=== PATIENT | female | born 1965 | race Caucasian/White ===

== ENCOUNTER 2017-03-20 05:08 | Day surgery (SDC) | payer OTHER ==
[2017-03-15 13:19] VITALS: BMI 26.6
--- NOTE | 2017-03-20 07:17 | HP ---
History & Physical Update - History History: No Change - Physical Physical: No Change - Assessment Assessment: No Change - Plan Plan: No Change (Initial h&p is complete and inher paper chart)
[2017-03-20] MEDS ORDERED: ePHEDrine SULFATE 50 MG/1 ML AMPULE ONE (09:27)
[2017-03-20] MEDS ORDERED: ROCURONIUM BROMIDE 50 MG/5 ML VIAL ONE (09:28)
[2017-03-20] MEDS ORDERED: SODIUM CHLORIDE 0.9% P/F 10 ML VIAL IJ ONE (09:28)
[2017-03-20] MEDS ORDERED: PROMETHAZINE HCL 25 MG/1 ML VIAL IVPUSH PRN (10:00)
[2017-03-20] MEDS ORDERED: ONDANSETRON 4 MG/2 ML VIAL IVPUSH PRN (10:00)
[2017-03-20] MEDS ORDERED: LACTATED RINGERS SOLUTION 1,000 ML IV SCH (10:00)
[2017-03-20] MEDS ORDERED: MIDAZOLAM HCL 2 MG/2 ML SINGLE DOSE VIAL ONE (10:04)
[2017-03-20] MEDS ORDERED: DEXAMETHASONE SOD PHOSPHATE 4 MG/1 ML VIAL ONE (10:15)
[2017-03-20] MEDS ORDERED: ceFAZolin SODIUM 1 GM VIAL IVPB ONE (10:45)
[2017-03-20] MEDS ORDERED: BUPIVACAINE HCL/PF 0.5% (5MG/ML) 10 ML VIAL IJ ONE ×2 (11:21→11:42)
[2017-03-20] MEDS ORDERED: oxyCODONE HCL 5 MG TABLET PO PRN (11:25)
[2017-03-20] MEDS ORDERED: GLYCOPYRROLATE 0.2 MG/1 ML VIAL ONE (11:36)
[2017-03-20] MEDS ORDERED: NEOSTIGMINE METHYLSULFATE 0.5 MG/ML - 10 ML MDV ONE (11:36)
[2017-03-20] MEDS ORDERED: HYDROmorphone HCL/PF 1 MG/ML VIAL (FOR PYXIS CHARGING ONLY) ONE (11:43)
--- NOTE | 2017-03-20 12:02 | OP ---
Operative Note - Note: Operative Date: 03/20/17 Pre-Operative Diagnosis: Ovarian cyst, pelvoc pain Operation: Robotic lysis of adhesions, right oopharectomy. Left ovarian wall biopsy Post-Operative Diagnosis: Same as Pre-op Surgeon: Iona Trevizo Proposal Manager: Aryan Ramos Anesthesiologist/WEB SITE DESIGNER: Sol Chakraborty Anesthesia: General Specimens Removed: Right ovary (complete). Left ovarian wall biopsy Estimated Blood Loss (mls): 20 Drains, Volume Out (mls): 300 (Clear) Fluid Volume Replaced (mls): 1,200 Operative Report Dictated: Yes
--- NOTE | 2017-03-20 12:04 | SURG ---
Surgery Web Manager Note Web Manager: Aryan Ramos PA-C Date of Service: 03/20/17 Diagnosis: Right ovarian cyst, pelvic pain Procedure: Robotic lysis of adhesions, right ovarian oopharectomy, left ovarian wall biopsy I was present for the entirety of the operative procedure. For further detail, please refer to operative report. Visit type - Case Type Case Type: Scheduled Admission - New patient This patient is new to me today: Yes Date on this admission: 03/20/17
[2017-03-20] MEDS ORDERED: ACETAMINOPHEN 1000 MG/100 ML VIAL (NON FORMULARY) IVPB ONE (12:05)
[2017-03-20] MEDS ORDERED: ONDANSETRON 4 MG/2 ML VIAL ONE (13:33)
[2017-03-20 13:41] VITALS: TEMP 97.5
[2017-03-20] MEDS ORDERED: PROMETHAZINE HCL 25 MG/1 ML VIAL ONE (15:24)
[2017-03-20] MEDS ORDERED: PROMETHAZINE HCL 25 MG/1 ML VIAL IVPUSH ONE (15:32)
[2017-03-20 17:34] VITALS: BP 100/60; PULSE 68
--- NOTE | 2017-03-21 14:14 | PATH ---
Surgical Pathology Report Patient Name: HUMPHREY VAZQUEZ [facility]. Rec. #: [id number] /Age/Gender: 1965 (Age: 51) / F Account: [id number] Location: [facility] SURGICAL Taken: 03/20/2017 Received: 03/20/2017 Reported: 03/21/2017 Physicians: Iona Trevizo M.D. Specimen(s) Received A: PORTION OF LEFT OVARY B: RIGHT OVARY Clinical History Right ovarian cyst Final Diagnosis A. PORTION OF LEFT OVARY: PORTION OF BENIGN OVARIAN TISSUE WITH FIBRINOHEMORRHAGIC ADHESIONS. B. RIGHT OVARY, OOPHORECTOMY: BENIGN OVARY WITH CYSTIC FOLLICLES AND CYSTIC CORPUS LUTEUM. Electronically Signed Marcos Caballero M.D. Gross Description A. Received in formalin labeled "portion of left ovary" the two fragments of shepard-pink soft tissue 0.5 and 0.6 cm in largest dimension. Submitted entirely in one cassette. B. Received in formalin, labeled "right ovary" is a 3 x 2.2 x 1.2 cm ovary with shepard convoluted outer surface. Sectioning reveals heterogenous ovarian parenchyma. The specimen is submitted entirely in three cassettes. AF/03/20/2017 final/03/20/2017
--- NOTE | 2017-03-23 12:37 | OP ---
DATE OF OPERATION: 03/20/2017 PREOPERATIVE DIAGNOSES: Left ovarian cyst, pelvic pain. OPERATION: Laparoscopic robotic left oophorectomy and right portion of ovary removed on the left. SURGEON: Psaha Trevizo MD SLAB INSTALLER: JENNIFER Luna ANESTHESIA: General. FINDINGS: Left peritoneal cyst and right ovary noted to be normal. DESCRIPTION OF PROCEDURE: Patient was taken to the operating room, placed in dorsal lithotomy position, prepped and draped in the usual sterile fashion. Timeout was performed in accordance to hospital regulation. Hernandez catheter was then placed into the bladder. Attention was then drawn to the upper left abdomen where a 5-mm umbilical incision was made. Veress needle was inserted into the cavity. Approximately 3-4 L of CO2 was insufflated. A 5-mm trocar, diagnostic scope was inserted. No adhesions were noted in the umbilicus. An 8-mm umbilical incision was made, and 2 right incisions were made on the right side and 1 incision on the left parallel to the umbilicus; 8-mm trocars were inserted under direct visualization without injury to the underlying viscera. was found. Patient placed into steep Trendelenburg. Da Garry robot was then side docked to the patient's bedside. The robot was then attached to the trocars, and control of the console was then done after [place], EndoShears, and vessel sealer was inserted into the ports. Examination of the right side revealed a normal ovary. Ureters were identified and found to have peristalsis. Ovary was then removed on the right side using a LigaSure. Attention was then drawn to the left side where a peritoneal cyst was noted. No ovarian cyst. Numerous adhesions were identified, and lysis of adhesions was performed with the robot. Remnants of the ovary were seen. Portion of that ovary was removed, but due to location of the ovary and intertwined with the bowel, not all of the ovary could be removed on the left side. Portion was submitted for identification. Peritoneal cysts had been ruptured. Both the left portion of the ovary removed, and the right ovary was removed and submitted to Pathology. Hemostasis was achieved. Bowel was found to be uninjured. All instruments were then removed. CO2 was removed from the abdomen. Irrigation had been done, and estimated blood loss was 20 mL. Incision was then closed using 3-0 Vicryl in subcuticular fashion. Wounds washed and dressed. The patient tolerated the procedure well and was taken to recovery room in stable condition. PASHA TREVIZO M.D. [id number]
== END 2017-03-20 17:34 | disposition home or self-care (01) ==
LOC: JASU-SURG 05:08
PROVIDERS: ATTEND Obstetrics & Gynecology
PROC: 0UB14ZZ Excision of Left Ovary, Percutaneous Endoscopic Approach (ICD-10-PCS; principal; 2017-03-20 09:30)
DX: K66.8 Other specified disorders of peritoneum (principal)
CPT/HCPCS: 58661; S2900; 84703; 88305-TC; 94760